=== PATIENT | female | born 1980 | race Caucasian/White ===

== ENCOUNTER 2017-06-23 21:31 | Emergency (ER) | payer OTHER ==
[~2017-06-23] VITALS: Ht 180.3 cm; Wt 90.0 kg
[2017-06-23] MEDS ORDERED: NORCO 5/3251 TABLET PO (23:42)
[2017-06-23 23:49] VITALS: BP 133/93
== END 2017-06-23 23:51 | disposition home or self-care (01) ==
LOC: EME 21:31
DX: S93.401A Sprain of unspecified ligament of right ankle, initial encounter (principal); S76.011A Strain of muscle, fascia and tendon of right hip, initial encounter; S80.01XA Contusion of right knee, initial encounter; V47.0XXA Car driver injured in collision with fixed or stationary object in nontraffic accident, initial encounter; F17.200 Nicotine dependence, unspecified, uncomplicated
CPT/HCPCS: 73552; 73564; 73610; 99281; 99284